=== PATIENT | male | born 1995 | race Caucasian/White ===

== ENCOUNTER 2017-10-13 23:46 | Emergency (ER) | payer OTHER ==
[2017-10-14] MEDS: NAPROXEN 250 MG TAB PO (02:00)
== END 2017-10-14 02:20 | disposition home or self-care (01) ==
LOC: M ED 23:46
DX: S63.92XA Sprain of unspecified part of left wrist and hand, initial encounter (principal); W01.0XXA Fall on same level from slipping, tripping and stumbling without subsequent striking against object, initial encounter; Y92.410 Unspecified street and highway as the place of occurrence of the external cause; F17.210 Nicotine dependence, cigarettes, uncomplicated
CPT/HCPCS: 73110